=== PATIENT | female | born 1935 | race Caucasian/White ===

== ENCOUNTER 2021-07-10 13:21 | Outpatient (CLI) | payer MEDICARE, OTHER | END 2021-07-10 13:22 | disposition home or self-care (01) | LOC: CSHMAMMO 13:21 | PROVIDERS: ATTEND Family Medicine | DX: Z12.31 Encounter for screening mammogram for malignant neoplasm of breast (principal); M81.0 Age-related osteoporosis without current pathological fracture; M85.851 Other specified disorders of bone density and structure, right thigh; M85.852 Other specified disorders of bone density and structure, left thigh | CPT/HCPCS: 77063; 77067; 77080 ==